=== PATIENT | male | born 1990 | race Caucasian/White ===

== ENCOUNTER 2017-10-11 08:44 | Emergency (ER) | payer SELFPAY ==
[~2017-10-11] VITALS: Ht 175.3 cm; Wt 74.8 kg
[~2017-10-11 08:44] MED LIST: ACET1TAB12 PO; PANT20TA2 PO; SUCR1TAB23 PO
--- NOTE | 2017-10-11 09:48 | Diagnostic Imaging Report ---
INDICATION: Injury to the right shoulder lifting weights. TIME OF EXAMINATION: 10:00 a.m. EXAMINATION: Three views of the right shoulder were obtained. FINDINGS: The glenohumeral and acromioclavicular alignments are normal. The acromiohumeral distance is normal. No fracture or dislocation is detected. IMPRESSION: No acute bony abnormality is detected. Dictated by: Dictated on workstation # [id number]
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
[2017-10-11] MEDS ORDERED: MELO-170 PO (10:02)
[2017-10-11 10:30] VITALS: BP 127/91
== END 2017-10-11 10:32 | disposition home or self-care (01) ==
LOC: EDUNIT# 08:44 → ER 08:48
DX: M25.511 Pain in right shoulder (principal); F17.210 Nicotine dependence, cigarettes, uncomplicated; Z98.890 Other specified postprocedural states; X50.0XXA Overexertion from strenuous movement or load, initial encounter
CPT/HCPCS: 73030